=== PATIENT | female | born 1985 | race Caucasian/White ===

== ENCOUNTER 2023-09-26 01:45 | Emergency (ER) | payer OTHER ==
[~2023-09-26] VITALS: Ht 167.6 cm; Wt 68.0 kg
[2023-09-26] MEDS: IV NORMAL SALINE 1000 ML BAG IV ONE (01:45)
[2023-09-26 02:20] LABS: BASOPHILS # (AUTO) 0.1 K/UL (0.0-0.2); BASOPHILS % (AUTO) 0.9 % (0.0-2.0); EOSINOPHILS # (AUTO) 0.1 K/uL (0.0-0.7); EOSINOPHILS % (AUTO) 0.9 % (0.0-7.0); HEMATOCRIT 35.7 % (31.2-41.9); HEMOGLOBIN 12.4 g/dL (10.9-14.3); LYMPHOCYTES # (AUTO) 1.9 K/uL (0.8-4.8); LYMPHOCYTES % (AUTO) 22.5 % (20.5-51.5); MEAN CORPUSCULAR HGB CONC 35 g/dL (32.3-35.6); MEAN CORPUSCULAR VOLUME 86.3 fL (75.5-95.3); MONOCYTES # (AUTO) 0.5 K/uL (0.1-1.30); MONOCYTES % (AUTO) 6.3 % (0.0-11.0); NEUTROPHILS # (AUTO) 5.9 K/uL (1.8-8.9); NEUTROPHILS % (AUTO) 69.4 % (38.5-71.5); PLATELET COUNT (AUTO) 324 K/uL (179-408); RED BLOOD CELL COUNT(AUTO) 4.14 MIL/uL (3.63-4.92); WHITE BLOOD COUNT (AUTO) 8.5 K/uL (3.8-11.8)
[2023-09-26 02:27] LABS: CALCIUM 7.8 mg/dL (8.5-10.1); CARBON DIOXIDE 29 mmol/L (21-32); CHLORIDE 105 mmol/L (98-107); CREATININE 0.9 mg/dL (0.6-1.3); GLUCOSE 93 mg/dL (74-106); POTASSIUM 3.5 mmol/L (3.5-5.1); SODIUM SERUM 144 mmol/L (136-145); UREA NITROGEN, BLOOD 11 mg/dL (7-18)
[2023-09-26 02:34] LABS: DIFFERENTIAL COMMENT 1
[2023-09-26 02:35] LABS: ALANINE AMINOTRANSFERASE 16 U/L (14-59); ALBUMIN 3.7 g/dL (3.4-5.0); ALKALINE PHOSPHATASE 44 U/L (50-136); ASPARTATE AMINOTRANSFERASE 5 U/L (15-37); BILIRUBIN,DIRECT 0.1 mg/dL (0.0-0.2); BILIRUBIN,TOTAL 0.3 mg/dL (0.2-1.0)
[2023-09-26 02:36] LABS: ACETAMINOPHEN < 10.0 ug/mL (10-30)
[2023-09-26 02:50] LABS: ETHANOL 42 MG/DL (0-10)
[2023-09-26 02:54] LABS: *BILIRUBIN,URIN NEGATIVE (NEGATIVE); *BLOOD, URINE NEGATIVE (NEGATIVE); *CLARITY,URINE CLEAR (CLEAR); *COLOR,URINE YELLOW (YELLOW); *KETONES,URINE NEGATIVE (NEGATIVE); *PROTEIN,URINE NEGATIVE (NEGATIVE); *UROBILINOGEN,URINE 0.2 E.U./dl (NORMAL); LEUKOCYTE ESTERASE ,URINE NEGATIVE (NEGATIVE); NITRITE, URINE NEGATIVE (NEGATIVE); UGLUCOSE NEGATIVE (NEGATIVE)
[2023-09-26 03:03] LABS: *URINE HCG, QUAL NEGATIVE (NEGATIVE)
[2023-09-26 03:07] LABS: *AMPHETAMINE, URINE NEGATIVE (NEGATIVE); *BARBITURATE, URINE NEGATIVE (NEGATIVE); *BENZODIAZEPINE, URINE NEGATIVE (NEGATIVE); *CANNABINOID, URINE NEGATIVE (NEGATIVE); *COCCAINE, URINE NEGATIVE (NEGATIVE); *OPIATE, URINE NEGATIVE (NEGATIVE); *PHENCYCLIDINE SCREEN,URINE NEGATIVE (NEGATIVE)
[2023-09-26 03:08] LABS: FENTANYL, URINE POSITIVE (NEGATIVE)
[2023-09-26] MEDS ORDERED: NALOXONE 2 MG/2 ML SYRINGE ONE (03:26)
[2023-09-26] MEDS: NALOXONE HCL 0.4 MG/ML AMPUL IV ONE (03:30)
[2023-09-26 06:57] VITALS: BP 99/65; TEMP 98; O2SAT 98
== END 2023-09-26 06:55 | disposition home or self-care (01) ==
LOC: ER 01:48
DX: R41.82 Altered mental status, unspecified (principal); T40.411A Poisoning by fentanyl or fentanyl analogs, accidental (unintentional), initial encounter; F11.129 Opioid abuse with intoxication, unspecified; R10.2 Pelvic and perineal pain; R09.02 Hypoxemia; Y92.89 Other specified places as the place of occurrence of the external cause
CPT/HCPCS: 80076; 80048; 81003; 84703; 85025; 84484; 36415; 93005; 71045; 99285; 96361; 96374; 83605; 80299; 80320; 80307; J2310; J7040; A4606; A4663; G0480

== ENCOUNTER 2024-05-17 18:40 | Emergency (ER) | payer SELFPAY ==
[~2024-05-17] VITALS: Ht 162.6 cm; Wt 54.4 kg
[2024-05-17] MEDS ORDERED: BUPRENORPHINE HCL 2 MG TAB.SUBL SL ONE ×2 (19:42→20:55)
[2024-05-17] MEDS ORDERED: ONDANSETRON ODT 4 MG TAB.RAPDIS ONE (19:42)
[2024-05-17] MEDS ORDERED: ASPIRIN 81 MG TAB.CHEW ONE (19:42)
[2024-05-17] MEDS: ASPIRIN 81 MG TAB.CHEW PO ONE (19:49)
[2024-05-17 19:50] LABS: *BILIRUBIN,URIN NEGATIVE (NEGATIVE); *BLOOD, URINE NEGATIVE (NEGATIVE); *CLARITY,URINE CLEAR (CLEAR); *COLOR,URINE YELLOW (YELLOW); *KETONES,URINE 1+ (NEGATIVE); *PROTEIN,URINE 2+ (NEGATIVE); *UROBILINOGEN,URINE 0.2 E.U./dl (NORMAL); BASOPHILS % (AUTO) 0.3 % (0.0-2.0); EOSINOPHILS % (AUTO) 0.2 % (0.0-7.0); HEMATOCRIT 34.7 % (31.2-41.9); HEMOGLOBIN 11.6 g/dL (10.9-14.3); LEUKOCYTE ESTERASE ,URINE NEGATIVE (NEGATIVE); LYMPHOCYTES # (AUTO) 0.9 K/uL (0.8-4.8); LYMPHOCYTES % (AUTO) 6.3 % (20.5-51.5); MEAN CORPUSCULAR HEMOGLOBIN 29.2 uug (24.7-32.8); MEAN CORPUSCULAR HGB CONC 34 g/dL (32.3-35.6); MEAN CORPUSCULAR VOLUME 87.1 fL (75.5-95.3); MONOCYTES # (AUTO) 1.3 K/uL (0.1-1.30); MONOCYTES % (AUTO) 9.4 % (0.0-11.0); NEUTROPHILS # (AUTO) 11.8 K/uL (1.8-8.9); NEUTROPHILS % (AUTO) 83.8 % (38.5-71.5); NITRITE, URINE NEGATIVE (NEGATIVE); PLATELET COUNT (AUTO) 320 K/uL (179-408); RED BLOOD CELL COUNT(AUTO) 3.98 MIL/uL (3.63-4.92); RED CELL DISTRIBUTION WIDTH 13.8 % (12.3-17.7); UGLUCOSE NEGATIVE (NEGATIVE); WHITE BLOOD COUNT (AUTO) 14.1 K/uL (3.8-11.8)
[2024-05-17] MEDS: BUPRENORPHINE HCL 2 MG TAB.SUBL SL ONE ×2 (19:51→20:58)
[2024-05-17] MEDS: ONDANSETRON ODT 4 MG TAB.RAPDIS SL ONE (19:51)
[2024-05-17 19:52] LABS: *URINE HCG, QUAL NEGATIVE (NEGATIVE); DIFFERENTIAL COMMENT 1; RBC,URINE 0-3 /HPF (0-3); WBC,URINE 0-3 /HPF (0-3)
[2024-05-17 20:01] LABS: *AMPHETAMINE, URINE POSITIVE (NEGATIVE); *BARBITURATE, URINE NEGATIVE (NEGATIVE); *BENZODIAZEPINE, URINE POSITIVE (NEGATIVE); *CANNABINOID, URINE POSITIVE (NEGATIVE); *COCCAINE, URINE POSITIVE (NEGATIVE); *OPIATE, URINE POSITIVE (NEGATIVE); *PHENCYCLIDINE SCREEN,URINE NEGATIVE (NEGATIVE); FENTANYL, URINE POSITIVE (NEGATIVE)
[2024-05-17 20:05] LABS: ALANINE AMINOTRANSFERASE 14 U/L (14-59); ALBUMIN 3.7 g/dL (3.4-5.0); ALKALINE PHOSPHATASE 61 U/L (50-136); ASPARTATE AMINOTRANSFERASE 15 U/L (15-37); BILIRUBIN,DIRECT 0.1 mg/dL (0.0-0.2); BILIRUBIN,TOTAL 0.4 mg/dL (0.2-1.0); CALCIUM 8.8 mg/dL (8.5-10.1); CARBON DIOXIDE 27 mmol/L (21-32); CHLORIDE 100 mmol/L (98-107); CREATININE 0.6 mg/dL (0.6-1.3); GLUCOSE 117 mg/dL (74-106); POTASSIUM 3.4 mmol/L (3.5-5.1); SODIUM SERUM 139 mmol/L (136-145); TOTAL PROTEIN, SERUM 7.9 g/dL (6.4-8.2); UREA NITROGEN, BLOOD 19 mg/dL (7-18)
[2024-05-17] MEDS ORDERED: BUPR8TAB4 SL (20:46)
[2024-05-17] MEDS ORDERED: ONDA4TAB11 PO (20:46)
[2024-05-17] MEDS ORDERED: LORAZEPAM 1 MG TABLET ONE (20:54)
[2024-05-17] MEDS: LORAZEPAM 0.5 MG TABLET PO ONE (20:57)
[2024-05-17 21:17] VITALS: BP 132/87; O2SAT 99
== END 2024-05-17 21:18 | disposition home or self-care (01) ==
LOC: ER 18:40
DX: F11.23 Opioid dependence with withdrawal (principal); F41.9 Anxiety disorder, unspecified; R94.31 Abnormal electrocardiogram [ECG] [EKG]; R10.2 Pelvic and perineal pain; R07.9 Chest pain, unspecified; F17.210 Nicotine dependence, cigarettes, uncomplicated; Z88.0 Allergy status to penicillin
CPT/HCPCS: 36415; 71045; 84484; 84703; 85025; A4606; A4663; Q0162